=== PATIENT | male | born 1950 | race African-American/Black ===

== ENCOUNTER 2017-01-14 14:25 | Emergency (ER) | payer MEDICARE, MEDICAID ==
[~2017-01-14] VITALS: Ht 172.7 cm; Wt 100.0 kg
[~2017-01-14 14:25] MED LIST: ARIP5TAB8 PO; BENZ1TAB7 GT; METF500T4 PO; PHEN100C4 PO
[2017-01-14 14:38] VITALS: BP 107/53
[2017-01-14] MEDS ORDERED: IPRATROPIUM/ALBUTEROL 0.5-3(2.5)MG/3ML NEB HHN ONE (16:30)
== END 2017-01-14 17:48 | disposition home or self-care (01) ==
LOC: ER 14:52
DX: J06.9 Acute upper respiratory infection, unspecified (principal); I10 Essential (primary) hypertension; F20.9 Schizophrenia, unspecified; G40.909 Epilepsy, unspecified, not intractable, without status epilepticus
CPT/HCPCS: 71010; 94640; 99283; J7620

== ENCOUNTER 2017-09-03 11:42 | Emergency (ER) | payer MEDICARE, MEDICAID ==
[~2017-09-03] VITALS: Ht 175.3 cm; Wt 100.0 kg
[~2017-09-03 11:42] MED LIST changes: +ABIL5 PO; -ARIP5TAB8 PO
[2017-09-03] MEDS ORDERED: SODIUM CHLORIDE 0.9% 1,000 ML IV ONE (13:27)
[2017-09-03 14:16] LABS: EOSINOPHILS % 0.6 % (0.0-5.0); HEMATOCRIT. 40.9 % (42.0-52.0); HEMOGLOBIN. 13.3 g/dL (14.0-18.0); LYMPHOCYTES % 33.1 % (20.0-50.0); MEAN CORPUSCULAR HEMOGLOBIN 32.4 pg (28.0-32.0); MEAN CORPUSCULAR VOLUME 99.3 fL (80.0-94.0); MEAN PLATELET VOLUME 6.9 fl (7.4-10.4); MONOCYTES % 8.2 % (2.0-8.0); NEUTROPHILS % 57.1 % (40.0-76.0); PLATELET 219 x1000/uL (130-400); RED BLOOD CELL COUNT 4.12 mill/uL (4.7-6.1); RED CELL DISTRIBUTION WIDTH 13.9 % (11.6-14.6)
[2017-09-03 14:31] LABS: CARBON DIOXIDE 26 mEq/L (21-32); CHLORIDE 105 mEq/L (98-107)
[2017-09-03 16:31] VITALS: BP 127/75
== END 2017-09-03 16:34 | disposition home or self-care (01) ==
LOC: ER 12:01
DX: J06.9 Acute upper respiratory infection, unspecified (principal); Z72.0 Tobacco use; Z79.899 Other long term (current) drug therapy
CPT/HCPCS: 36415; 74010; 80053; 85025; 87804; 96360; 99285; J7030

== ENCOUNTER 2017-09-23 23:20 | Emergency (ER) | payer MEDICARE, MEDICAID ==
[~2017-09-23] VITALS: Ht 172.7 cm; Wt 109.0 kg
[2017-09-24] MEDS ORDERED: ACETAMINOPHEN 500MG TABLET PO ONE
[2017-09-24 01:44] VITALS: BP 117/61
== END 2017-09-24 01:44 | disposition home or self-care (01) ==
LOC: ER 23:30
DX: R09.89 Other specified symptoms and signs involving the circulatory and respiratory systems (principal); M54.89 Other dorsalgia; I10 Essential (primary) hypertension; J45.909 Unspecified asthma, uncomplicated; F41.9 Anxiety disorder, unspecified
CPT/HCPCS: 71010; 99283

== ENCOUNTER 2019-07-27 15:54 | Emergency (ER) | payer MEDICARE, MEDICAID ==
[~2019-07-27] VITALS: Ht 172.7 cm; Wt 109.0 kg
[~2019-07-27 15:54] MED LIST changes: +METF-414 PO; -METF500T4 PO
[2019-07-27 19:17] LABS: BASOPHILS % 0.5 % (0.0-2.0); EOSINOPHILS % 0.4 % (0.0-5.0); HEMATOCRIT. 41.9 % (42.0-52.0); LYMPHOCYTES % 31.3 % (20.0-50.0); MEAN CORPUSCULAR HEMOGLOBIN 33.3 pg (28.0-32.0); MEAN CORPUSCULAR VOLUME 99.6 fL (80.0-94.0); MEAN PLATELET VOLUME 7.3 fl (7.4-10.4); MONOCYTES % 11.2 % (2.0-8.0); NEUTROPHILS % 56.6 % (40.0-76.0); PLATELET 228 x1000/uL (130-400); RED BLOOD CELL COUNT 4.21 mill/uL (4.7-6.1); RED CELL DISTRIBUTION WIDTH 14.1 % (11.6-14.6)
[2019-07-27 19:18] LABS: CHLORIDE 111 mEq/L (98-107)
[2019-07-27 19:24] LABS: ETHANOL BLOOD < 10 mg/dL
[2019-07-27 19:30] LABS: CARBAMAZEPINE < 0.5 ug/mL (4-12)
[2019-07-27 19:38] LABS: PHENOBARBITAL < 2.1 ug/mL (15.0-40.0)
[2019-07-27 20:22] VITALS: BP 165/88
== END 2019-07-27 20:23 | disposition home or self-care (01) ==
LOC: ER 15:54
DX: S80.02XA Contusion of left knee, initial encounter (principal); R05 Cough; I10 Essential (primary) hypertension; G40.909 Epilepsy, unspecified, not intractable, without status epilepticus; J45.909 Unspecified asthma, uncomplicated; W01.0XXA Fall on same level from slipping, tripping and stumbling without subsequent striking against object, initial encounter; Y93.89 Activity, other specified; Y92.488 Other paved roadways as the place of occurrence of the external cause
CPT/HCPCS: 36415; 73560; 80156; 80165; 80184; 80185; 80320; 82962; 83880; 84443; 84484; 93005; 99284; G0480

== ENCOUNTER 2019-09-28 15:50 | Emergency (ER) | payer MEDICARE, MEDICAID ==
[~2019-09-28] VITALS: Ht 172.7 cm; Wt 100.0 kg
[2019-09-29 02:05] LABS: CHLORIDE 109 mEq/L (98-107); INR 0.9; PROTHROMBIN TIME 9.5 sec (9.6-11.0)
[2019-09-29 02:13] LABS: BASOPHILS % 0.4 % (0.0-2.0); EOSINOPHILS % 0.9 % (0.0-5.0); HEMATOCRIT. 41.3 % (42.0-52.0); HEMOGLOBIN. 13.7 g/dL (14.0-18.0); LYMPHOCYTES % 34.7 % (20.0-50.0); MEAN CORPUSCULAR HEMOGLOBIN 32.9 pg (28.0-32.0); MEAN PLATELET VOLUME 7.7 fl (7.4-10.4); MONOCYTES % 10.1 % (2.0-8.0); NEUTROPHILS % 53.9 % (40.0-76.0); PLATELET 232 x1000/uL (130-400); RED BLOOD CELL COUNT 4.17 mill/uL (4.7-6.1); RED CELL DISTRIBUTION WIDTH 14.3 % (11.6-14.6)
[2019-09-29 03:12] LABS: HEPATITIS B SURFACE ANTIGEN NEGATIVE
[2019-09-29 03:41] LABS: HEPATITIS A AB IGM NEGATIVE (NEGATIVE)
[2019-09-29 05:31] VITALS: BP 117/59
== END 2019-09-29 06:28 | disposition home or self-care (01) ==
LOC: ER 15:56
DX: J06.9 Acute upper respiratory infection, unspecified (principal); R10.9 Unspecified abdominal pain; F17.290 Nicotine dependence, other tobacco product, uncomplicated; F41.9 Anxiety disorder, unspecified; I10 Essential (primary) hypertension; J45.909 Unspecified asthma, uncomplicated; Z79.899 Other long term (current) drug therapy
CPT/HCPCS: 36415; 71045; 74176; 80053; 83880; 84484; 85025; 86705; 86709; 86803; 87340; 93005; 99284

== ENCOUNTER 2020-06-12 10:06 | Emergency (ER) | payer MEDICARE, MEDICAID ==
[~2020-06-12] VITALS: Ht 175.3 cm; Wt 99.7 kg
[2020-06-12 10:07] VITALS: BP 128/70
== END 2020-06-12 11:13 | disposition left against medical advice (07) ==
LOC: ER 10:06
DX: M79.89 Other specified soft tissue disorders (principal); Z53.21 Procedure and treatment not carried out due to patient leaving prior to being seen by health care provider

== ENCOUNTER 2020-07-09 21:51 | Emergency (ER) | payer MEDICARE, MEDICAID ==
[~2020-07-09] VITALS: Ht 175.3 cm; Wt 73.0 kg
[2020-07-09] MEDS ORDERED: IBUPROFEN 600MG TABLET PO STA (22:13)
[2020-07-09 22:50] VITALS: BP 110/62
== END 2020-07-09 23:05 | disposition home or self-care (01) ==
LOC: ER 21:51
DX: M25.562 Pain in left knee (principal); M13.862 Other specified arthritis, left knee; F41.9 Anxiety disorder, unspecified; I10 Essential (primary) hypertension; E11.9 Type 2 diabetes mellitus without complications; J45.909 Unspecified asthma, uncomplicated; G40.909 Epilepsy, unspecified, not intractable, without status epilepticus
CPT/HCPCS: 73562; 93005; 99283

== ENCOUNTER 2020-08-08 12:23 | Emergency (ER) | payer MEDICARE, MEDICAID ==
[~2020-08-08] VITALS: Ht 175.3 cm; Wt 100.0 kg
[2020-08-08 14:58] VITALS: BP 120/69
== END 2020-08-08 15:01 | disposition home or self-care (01) ==
LOC: ER 12:23
DX: L03.311 Cellulitis of abdominal wall (principal); E11.9 Type 2 diabetes mellitus without complications; I10 Essential (primary) hypertension; F41.9 Anxiety disorder, unspecified; J45.909 Unspecified asthma, uncomplicated; Z79.84 Long term (current) use of oral hypoglycemic drugs
CPT/HCPCS: 99283

== ENCOUNTER 2020-12-03 13:05 | Emergency (ER) | payer MEDICARE, MEDICAID ==
[~2020-12-03] VITALS: Ht 167.6 cm; Wt 110.0 kg
[2020-12-03] MEDS ORDERED: KETOROLAC 60MG/2ML VIAL IM ONE (14:00)
[2020-12-03] MEDS ORDERED: IBUP-2029 MT (15:17)
[2020-12-03 15:52] VITALS: BP 145/66
== END 2020-12-03 15:55 | disposition home or self-care (01) ==
LOC: ER 13:05
DX: G89.29 Other chronic pain (principal); M54.5 Low back pain; M25.562 Pain in left knee; I10 Essential (primary) hypertension; E11.9 Type 2 diabetes mellitus without complications; J45.909 Unspecified asthma, uncomplicated; Z91.81 History of falling
CPT/HCPCS: 72100; 73564; 96372; 99284; J1885